=== PATIENT | male | born 1935 | race Caucasian/White ===

== ENCOUNTER → 2016-12-18 | Outpatient (CLI) | payer BC ==
[~2016-12-18] MED LIST: ALBU1AER9 INH; ASPCH81; CALCTAB5 PO; CHOL100010 PO; FLNIN NAE; FLVHFA110 INH; LISI40TA PO; METR1GEL3 TOP; MUCINEX DM PO; OMEG10007 PO; PRESERVISION PO; PRLSR20 PO; SIMV20TA2 PO; [UNRECOGNIZED DRUG - OTHER] PO; leutin PO
--- NOTE | 2016-12-19 15:50 | PULMONARY FUNCTION TEST ---
Spirometry is consistent with a mild obstructive pattern. Repeat study done following bronchodilator showed a 13% improvement in FEV1. Advised clinical correlation. Lung volumes showed an increase in residual volume suggesting air trapping. Diffusion capacity was normal.
== END | disposition home or self-care (01) ==
LOC: C.RC 13:02
PROVIDERS: ATTEND Internal Medicine
DX: R05 Cough (principal); R06.2 Wheezing

== ENCOUNTER → 2017-07-16 | Outpatient (CLI) | payer BC ==
--- NOTE | 2017-07-16 15:28 | DIAGNOSTIC IMAGING REPORT ---
R HIP UNILATERAL 2 VIEWS CLINICAL HISTORY: Right hip pain. No known trauma. COMPARISON: None FINDINGS: Brachytherapy seeds within the prostate are incidentally noted. Alignment of the right hip is anatomic. There is no fracture or suspicious osseous lesion. There is marked right hip joint space narrowing with osteophytosis. IMPRESSION: 1. No acute fracture. 2. Severe osteoarthritis of the right hip. Electronically signed by: Nikko Armando M.D. 07/16/2017 3:27 PM Dictated Date/Time: 07/16/2017 3:26 PM
== END | disposition home or self-care (01) ==
LOC: C.RADBC 14:36
PROVIDERS: ATTEND Internal Medicine
DX: M16.11 Unilateral primary osteoarthritis, right hip (principal)

== ENCOUNTER → 2017-07-27 | Outpatient (CLI) | payer BC | END | disposition home or self-care (01) | LOC: C.LABSPEC 16:20 | PROVIDERS: ATTEND Nurse Practitioner Family | DX: N39.41 Urge incontinence (principal) ==

== ENCOUNTER → 2017-08-24 | Outpatient (CLI) | payer BC ==
[2017-08-24 08:13] LABS: HEMATOCRIT 45.3 % (42-52); MEAN CELL VOLUME 88.8 fL (80-100); MEAN CORPUSCULAR HEMOGLOBIN 29.4 pg (25-34); MEAN CORPUSCULAR HGB CONC 33.1 g/dl (32-36); PLATELET COUNT 240 K/uL (130-400); WHITE BLOOD COUNT 7.17 K/uL (4.8-10.8)
[2017-08-24 08:17] LABS: BLOOD UREA NITROGEN 16 mg/dl (7-18); BUN/CREATININE RATIO 20.3 (10-20); CALCIUM 8.9 mg/dl (8.5-10.1); CARBON DIOXIDE 29 mmol/L (21-32); CHLORIDE 104 mmol/L (98-107); CREATININE 0.79 mg/dl (0.60-1.40); GLUCOSE 95 mg/dl (70-99); POTASSIUM 4.4 mmol/L (3.5-5.1); SODIUM 142 mmol/L (136-145)
[2017-08-24 08:27] LABS: CHOLESTEROL 130 mg/dl (0-200); CHOLESTEROL/HDL RATIO 2.3; HDL CHOLESTEROL 57 mg/dl; LDL CHOLESTEROL CALCULATED 42 mg/dl; TRIGLYCERIDES 156 mg/dl (0-150); VERY LOW DENSITY LIPOPROT CALC 31 mg/dl
== END | disposition home or self-care (01) ==
LOC: C.LABFOXMH 07:54
PROVIDERS: ATTEND Internal Medicine Hospice and Palliative Medicine
DX: R53.83 Other fatigue (principal)

== ENCOUNTER 2021-04-16 05:08 | Observation (INO) ==
--- NOTE | 2021-03-22 10:50 | PAT Medication Instructions ---
Medication Instructions Date of Service March 22, 2021 Home Medications Medication Instructions Recorded onabotulinumtoxinA 100 unit 100 unit INTRAVESICAL ONCE #1 ea 06/25/20 solution for injection albuterol sulfate 90 mcg/actuation breath activated powder inhaler 2 puffs INH Q6H PRN alendronate 70 mg-cholecalciferol (vitamin D3) 2,800 unit tablet 1 tab PO WK aspirin 81 mg tablet,delayed release 81 mg PO PM cholecalciferol (vitamin D3) 50 mcg (2,000 unit) tablet 2,000 units PO QAM guaifenesin 1,200 mg tablet, extended release 12 hr 1,200 mg PO BID PRN lisinopril 40 mg tablet 40 mg PO QAM metronidazole 0.75 % topical gel 1 appln TOP DAILY PRN omeprazole 20 mg capsule,delayed release 20 mg PO DAILY PRN vitamins A,C,V-mdec-iqlelq 14,320 unit-226 mg-200 unit capsule 1 cap PO BID onabotulinumtoxinA 100 unit solution for injection 100 unit INTRAVESICAL ONCE acetaminophen [Tylenol] 325 mg PO BID coenzyme Q10 [Co Q-10] 100 mg PO QAM famotidine [Pepcid] 20 mg PO BID lutein 20 mg PO QAM melatonin 3 mg PO HS prednisone 7 mg PO QAM rosuvastatin 20 mg PO PM solifenacin [Vesicare] 5 mg PO QAM Continue as directed alendronate 70 mg-cholecalciferol (vitamin D3) 2,800 unit tablet 1 tab PO WK (continue as normal unless told otherwise by prescriber) STOP taking 2 weeks before surgery (or as soon as possible if surgery is within 2 weeks) vitamins A,C,M-owmq-feqykz 14,320 unit-226 mg-200 unit capsule 1 cap PO BID coenzyme Q10 [Co Q-10] 100 mg PO QAM lutein 20 mg PO QAM STOP taking 24 hours before surgery metronidazole 0.75 % topical gel 1 appln TOP DAILY PRN DO NOT take the morning of surgery cholecalciferol (vitamin D3) 50 mcg (2,000 unit) tablet 2,000 units PO QAM guaifenesin 1,200 mg tablet, extended release 12 hr 1,200 mg PO BID PRN lisinopril 40 mg tablet 40 mg PO QAM Take morning of surgery With a small sip of water, OTHERWISE NOTHING TO EAT OR DRINK AFTER MIDNIGHT: albuterol sulfate 90 mcg/actuation breath activated powder inhaler 2 puffs INH Q6H PRN (use if needed; please bring rescue inhaler with you to hospital day of surgery if possible) omeprazole 20 mg capsule,delayed release 20 mg PO DAILY PRN (if needed) acetaminophen [Tylenol] 325 mg PO BID (okay to take up to 4 hours prior to surgery if needed) famotidine [Pepcid] 20 mg PO BID prednisone 7 mg PO QAM solifenacin [Vesicare] 5 mg PO QAM Take evening before surgery albuterol sulfate 90 mcg/actuation breath activated powder inhaler 2 puffs INH Q6H PRN (if needed) aspirin 81 mg tablet,delayed release 81 mg PO PM (continue as normal unless told otherwise by surgeon) guaifenesin 1,200 mg tablet, extended release 12 hr 1,200 mg PO BID PRN (if needed) omeprazole 20 mg capsule,delayed release 20 mg PO DAILY PRN (if needed) acetaminophen [Tylenol] 325 mg PO BID famotidine [Pepcid] 20 mg PO BID melatonin 3 mg PO HS rosuvastatin 20 mg PO PM Other Notes If you have any questions please call us at [phone] or [phone] or [phone] or [phone]
--- NOTE | 2021-03-27 08:18 | Anesthesiology Consultation ---
Date of Service March 27, 2021 Assessment & Plan (1) Encounter for pre-operative examination: COVID screening: Per assessment on 03/27: Travel screen negative, no known COVID- 19 positive contacts or current COVID-19 related symptoms. Patient resides at [facility] (independent living). No [facility] cases currently per patient. Patient vaccinated. Surgeon arranging preop COVID testing. Awaiting results. Chart Review Chart Review: Acceptable Risk for Surgery and Patient seen in Pre Admission Testing Teaching & Discussion Pre-Anesthesia Teaching/Discussion Notes: Instructed NPO after midnight before surgery,except medications with 15 cc of water. Medication instructions provided according to the PAT guidelines. History Surgery Operation Date: 04/16/21 08:50 Proposed Procedures p Right Total Hip Arthroplasty - Alejandro Carrera MD Height/Weight Height: 5 ft 9 in Weight: 80 kg Allergies Allergy/AdvReac Type Severity Reaction Status Date / Time tamsulosin Allergy Unknown Unknown Verified 03/20/21 09:46 Medications Home Medications Medication Instructions Recorded Confirmed Last Taken albuterol sulfate 90 mcg/actuation 2 puffs INH Q6H PRN 11/17/19 03/20/21 Unknown breath activated powder inhaler alendronate 70 mg-cholecalciferol 1 tab PO WK 11/17/19 03/20/21 Unknown (vitamin D3) 2,800 unit tablet aspirin 81 mg tablet,delayed 81 mg PO PM 11/17/19 03/20/21 Unknown release cholecalciferol (vitamin D3) 50 2,000 units PO QAM 11/17/19 03/20/21 Unknown mcg (2,000 unit) tablet guaifenesin 1,200 mg tablet, 1,200 mg PO BID PRN 11/17/19 03/20/21 Unknown extended release 12 hr lisinopril 40 mg tablet 40 mg PO QAM 11/17/19 03/20/21 Unknown metronidazole 0.75 % topical gel 1 appln TOP DAILY PRN 11/17/19 03/20/21 Unknown omeprazole 20 mg capsule,delayed 20 mg PO DAILY PRN 11/17/19 03/20/21 Unknown release vitamins A,C,B-mroj-rpuxpo 14,320 1 cap PO BID 11/17/19 03/20/21 Unknown unit-226 mg-200 unit capsule onabotulinumtoxinA 100 unit 100 unit INTRAVESICAL ONCE #1 ea 06/25/20 03/20/21 Unknown solution for injection acetaminophen [Tylenol] 325 mg PO BID 03/20/21 03/20/21 Unknown coenzyme Q10 [Co Q-10] 100 mg PO QAM 03/20/21 03/20/21 Unknown famotidine [Pepcid] 20 mg PO BID 03/20/21 03/20/21 Unknown lutein 20 mg PO QAM 03/20/21 03/20/21 Unknown melatonin 3 mg PO HS 03/20/21 03/20/21 Unknown prednisone 7 mg PO QAM 03/20/21 03/20/21 Unknown rosuvastatin 20 mg PO PM 03/20/21 03/20/21 Unknown solifenacin [Vesicare] 5 mg PO QAM 03/20/21 03/20/21 Unknown Past Medical History Medical History (Updated 03/27/21 @ 09:26 by Kristina Perry) Asthma stable GERD (gastroesophageal reflux disease) controlled Hyperlipidemia Hypertension Osteoarthritis Osteoporosis Polymyalgia rheumatica chronically on prednisone 7mg daily Prostate cancer 8 yrs ago> radioactive seeds Urinary incontinence Exercise / Class Metabolic Activity II 4-5 Yardwork/Stairs/Walk up hill (one FS (no CP, no SOB)) Past Surgical History Surgical History History of cardiac cath 8 yrs ago > Sue> no stents History of cataract surgery bilat History of colonoscopy History of root canal procedure History of tonsillectomy History of tooth extraction History of total knee replacement left Past Anesthesia History No Hx of Anesthesia Complications and No Family Hx of Anesthesia Complications History of PONV No Hx of PONV and No Hx of Motion Sickness Social History Smoking Status: Never smoker Do You Dip or Chew Tobacco: No Hx Alcohol Use: Yes Alcohol type: wine alcohol intake frequency: holidays/special occasions only Hx Substance Use: No substance use type: does not use Review of Systems Patient denies chest pain, shortness of breath, dyspnea on exertion, fever, chills, cough, wheezing, palpitations. Physical Exam Vital Signs VITALS BP 127/73 P 61 TEMP SP02 93%RA RESP 16 PHYSICAL Mildly decreased cervical extension range of motion. Full TMJ range of motion. TMD 4 finger breaths Mallampati Score 3 Dentition: intact, + implant (upper left side) Lungs: clear throughout to auscultation Cardiac: regular rate and rhythm, no murmurs noted Spine: normal Carotid arteries: negative bruit Extremities: no edema Lab Results Anesthesia Preop Results Results Anesthesia Widget: WBC 9.03 K/uL (4.8-10.8) 03/27/21 Hgb 13.6 g/dL (14.0-18.0) L 03/27/21 Hct 42.3 % (42-52) 03/27/21 Plt 307 K/uL (130-400) 03/27/21 Na 142 mmol/L (136-145) 03/27/21 K 4.0 mmol/L (3.5-5.1) 03/27/21 Cl 109 mmol/L (98-107) H 03/27/21 CO2 26 mmol/L (21-32) 03/27/21 BUN 18 mg/dl (7-18) 03/27/21 Creat 0.67 mg/dl (0.6-1.4) 03/27/21 Glucose Level 89 mg/dl (70-99) 03/27/21 PT 10.6 Seconds (9.0-12.0) 03/27/21 PTT 26.2 Seconds (21.0-31.0) 03/27/21 INR 1.0 (0.9-1.1) 03/27/21 Blood Type O Positive 03/27/21 Antibody Screen NEGATIVE 03/27/21 Testing Electrocardiogram Date: 03/27/21 Sinus bradycardia with first-degree AV block at 57 bpm. Minimal voltage criteria for LVH, may be normal variant. No significant change compared to 09/05/2009 per disk grinder review. Chest X-Ray Date: 03/27/21 Mild atelectasis at the left base. No significant pulmonary vascular congestion. No pneumothorax. No pleural effusion.
--- NOTE | 2021-04-07 14:58 | History and Physical Report ---
CHIEF COMPLAINT: Right hip pain. HISTORY OF PRESENT ILLNESS: The patient is an 85-year-old gentleman well known to me from previous l eft knee replacement done 14 years ago. He is a very avid ball worker. Over the past year, he h as developed increased pain and discomfort in his right hip. He has been less active with the [facility] and noticed increasing hip pain and discomfort. He has not been able to do any ballroom dancing. He actually has started using a cane over the past couple months due to the pain. His groin pain an d thigh pain radiates down to his knee, but no further. He has difficulty putting his shoes and sock s on. He does like to have his hip fixed. He has taken oral medicines without much relief. PAST MEDICAL HISTORY: Significant for. 1. Asthma. 2. Low back pain/sciatica. 3. Elevated cholesterol. 4. Gastroesophageal reflux disease. 5. Hypertension. PAST SURGICAL HISTORY: Include left total knee replacement done on 02/12/2007. ALLERGIES: DUST. CURRENT MEDICATIONS: 1. Albuterol. 2. Alendronate. 3. Aspirin 4. Vitamin D3. 5. Fluticasone nasal spray. 6. Guaifenesin. 7. Lisinopril 40 mg. 8. Metronidazole topical gel. 9. [place] 3 fatty acids. 10. Omeprazole 20 mg daily. 11. Simvastatin/Zocor 10 mg daily. 12. VESIcare 5 mg a day. SOCIAL HISTORY: The patient is an 85-year-old male. He lives at [facility] with his . 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 He is very avid ball worker. He does not smoke . FAMILY HISTORY: Noncontributory. REVIEW OF SYSTEMS: Negative for diabetes, neurologic problems, vascular problems or bleeding disorde rs. No chest pain or shortness of breath. No history of DVT or PE. No known bleeding problems. PHYSICAL EXAMINATION: GENERAL: He is a pleasant 85-year-old male. He looks to be in excellent health. HEENT: Benign. NECK: Supple. No lymphadenopathy. LUNGS: Clear to auscultation. HEART: Regular rate and rhythm. ABDOMEN: Soft, nontender, nondistended. EXTREMITIES: Grossly neurovascularly intact except as follows. Examination of the right hip revealed patient ambulates with a bit of a limp. He comes in using a ca ne. Leg lengths appear pretty clinically equal. He does have some stiffness and pain with any type of hip motion. He has got an external rotation contracture about 5 degrees. Negative straight leg r aise. He is neurologically intact. X-rays of the right hip are reviewed. Shows advanced right hip DJD. He has got complete loss of the joint space. He has fairly concentric protrusio appearance to his hip. Concentric joint space loss . ASSESSMENT: An 85-year-old male, very active with several medical comorbidities including gastroesop hageal reflux disease, hypertension, elevated cholesterol, asthma and sciatica with advanced right hi p degenerative joint disease. It has progressed over the past year to the point where it is really l imiting his activities. He would like to have his right hip fixed. PLAN: We will take him to the operating room and do a right total hip replacement. The risks and lilliam efits of this procedure were explained to the patient including but not limited to DVT, PE, , in fection, neurological injury, vascular injury, bleeding problems, pain, limited range of motion, stif fness, failure to relieve the symptoms, incomplete relief of symptoms, need for further surgery, futu re, fracture, leg length inequality, nerve palsy, etc. The patient understands and desires to procee d. Informed consent was obtained. He does assist his in care and is hoping to get back to normal activities as quick as possible. He will likely stay in the hospital overnight. He will likely go to the [facility] postoperatively in the rehab area. Hold his lisinopril the morning of surgery. Job ID: [id number]
[2021-04-16] MEDS ORDERED: LR 500ML BOLUS, THEN 15ML/HR IV SCH (06:00)
[2021-04-16] MEDS ORDERED: ceFAZolin 2000MG 2,000 MG/15 ML SYR IV SCH (06:00)
[2021-04-16] MEDS ORDERED: Scopolamine 1 MG TDSY TD SCH (06:00)
[2021-04-16] MEDS ORDERED: FAMOTIDINE 20 MG TAB PO SCH (06:00)
[2021-04-16] MEDS ORDERED: METOCLOPRAMIDE HCL 10 MG TABLET PO SCH (06:00)
[2021-04-16] MEDS ORDERED: ACETAMINOPHEN 500 MG TAB PO SCH (06:00)
[2021-04-16] MEDS ORDERED: LR 60ML/HR IV SCH (06:00)
[2021-04-16] MEDS ORDERED: GABAPENTIN 300 MG CAP PO SCH (06:00)
[2021-04-16] MEDS ORDERED: TRANEXAMIC ACID 1,000 MG **IV Pre-op IV SCH (06:00)
[2021-04-16] MEDS ORDERED: BUPIVACAINE LIPOSOME/PF 266 MG, BUPIVACAINE/EPINEPHRINE 50 ML, SODIUM CHLORIDE 0.9% 30 ... INFIL SCH (06:00)
[2021-04-16] MEDS ORDERED: BUPIVACAINE 0.5 % 5 MG/1 ML PF 10ML VIAL ONE (06:26)
[2021-04-16] MEDS ORDERED: BUPIVACAINE 0.25% 30 ML VIAL ONE (06:26)
[2021-04-16] MEDS ORDERED: fentaNYL citrate 100 MCG/2 ML VIAL IV PRN (06:27)
[2021-04-16] MEDS ORDERED: ONDANSETRON INJ 2 MG/ML 2 ML VIAL IV PRN ×3 (06:27→10:52)
[2021-04-16] MEDS ORDERED: ePHEDrine sulfate 50 MG/ML AMP IV PRN ×2 (06:27→10:52)
[2021-04-16] MEDS ORDERED: ATROPINE SULFATE 0.1 MG/ML 10ML SYR IV PRN (06:27)
[2021-04-16] MEDS ORDERED: MIDAZOLAM HCL 1 MG/ML 2ML VIAL ONE (06:45)
[2021-04-16] MEDS ORDERED: MoRPHine SULFATE PF 1 MG/ML 10 ML AMP/VIAL ONE (06:46)
[2021-04-16] MEDS ORDERED: BUPIVACAINE/EPINEPHRINE 0.5% MPF 1:200,000 30 ML VIAL ONE (06:50)
--- NOTE | 2021-04-16 06:53 | History & Physical Bridge Note ---
Date of Service April 16, 2021 History & Physical Bridge Note I have examined the patient, reviewed the History & Physical and in the interval since the performance of the History & Physical I have noted the following changes of clinical significance: no changes noted
[2021-04-16] MEDS ORDERED: ePHEDrine sulfate 50 MG/ML SYR ONE (07:30)
[2021-04-16] MEDS ORDERED: PHENYLEPHRINE 100MCG/ML 5ML SYR ONE (07:30)
[2021-04-16] MEDS ORDERED: HYDROCORTISONE SOD SUCCINATE 100 MG/2 ML VIAL ONE (07:30)
[2021-04-16] MEDS ORDERED: ONDANSETRON INJ 2 MG/ML 2 ML VIAL ONE (07:30)
[2021-04-16] MEDS ORDERED: PROPOFOL IV EMULSION 10 MG/ML 20 ML VIAL IV ONE (07:30)
--- NOTE | 2021-04-16 08:38 | Operative Report ---
Post Operative Report Pre & Post Diagnosis Operation Date: 04/16/21 07:00 Pre-Op Diagnosis: Right Hip Advanced Degenerative Joint Disease Post-Op Diagnosis: Right Hip Advanced Degenerative Joint Disease I identified the patient and participated in the time-out.: Yes Procedure Operation Date: 04/16/21 07:00 Actual Procedures p Right Total Hip Arthroplasty--Uncemented(Right) - Alejandro Carrera MD Surgeon Alejandro Carrera MD [facility] Estimated Blood Loss 200 Findings Consistent with Post-Op Diagnosis Operative findings revealed advanced right hip DJD. Patient had extensive grade 4 pqyx-fi-sbqt disease of the femoral head and acetabulum. He had count of a protrusio appearance to the acetabular with pincer type impingement. Small anterior and posterior acetabular osteophytes. Moderate-sized joint effusion. Fluids 1000 cc Specimens Right femoral head sent for pathology. Drains None. Anesthesia Type Spinal MAC Complications none Disposition Accompanied Patient To Recovery: Yes Disposition: Recovery Room Indications Patient is an 85-year-old very active gentleman whose had a several year history of increasing right hip pain discomfort is gotten singly worse over the past year. He has resorted to using a cane to get around. It truly hampered his lifestyle and limit his activities. He elected proceed with surgical treatment. Description of Procedure Operative implants consist of: 1. Biomet G7 size 56 mm acetabular shell. 2. 6.5 cancellous acetabular screws 135 mm length 125 mm length. 3. Osseo hole rn postpartum. 4. Highly cross-linked polyethylene liner with a 56 mm outer diameter, 36 mm inner diameter. 5. [place] Corail size 11 KLA short neck femoral stem. 6. +5/36 mm ceramic articular ball. The patient was taken to the operating, identified, and placed on the operating table supine position but all contact areas were properly padded. IV antibiotics tried by anesthesia team. Spinal anesthetic had been implemented holding area. Carney catheter was placed in sterile fashion. The patient then placed in the left lateral decubitus position. An axillary roll was placed. A Stulberg hip positioner was used for positioning. The right hip and leg were then prepped and draped in usual sterile fashion. A posterior lateral approach to the right hip was then performed to a curvilinear incision centered over the greater trochanter. Sharp dissection Was carried out through the subcutaneous tissues down to the level of the IT band gluteal fascia. The IT band gluteal fascia then incised longitudinally in line with skin incision. The underlying greater bursa was excised. The piriformis and external rotators were tagged and taken off the posterior aspect hip joint capsule. Great care was taken throughout the procedure protect the sciatic nerve at all times. The hip was internally rotated and dislocated after posterior capsulotomy was performed. We did leave a large flap for later repair. Femoral neck osteotomy cut was then made with Final Cut about 11 mm above the lesser trochanter. Femoral head was removed and sent for pathology. The femur was retracted anteriorly. Attention drawn the acetabulum. The acetabular labrum was excised. The pulmonary fat was excised. Sequential reaming the acetabular was then performed below the size 45 and progressing up to a 55. We did not do much reaming centrally as he had fairly a protrusio appearance to his acetabulum. I did reamed with a 56 reamer. The a 56 mm Biomet G7 acetabular shell was then placed in about 20 degrees of anteversion and 40 degrees lateral opening. Small small anterior and posterior osteophytes were removed. The acetabular was fixed with two 6.5 cancellous acetabular screws. Trial liner was placed. Attention drawn the femur. The proximal femur was entered with a cookie-cutter followed by canal finder. I then broached begin the size 8 and progressing up to 11. Got excellent fit at 11. I then trialed the hip. With a standard neck the soft tissues were just too tight. Therefore we elected to use the short neck. Use a +5 articular ball and the hip was fully stable in full extension and external rotation flexion to 9 degrees internal rotation over [address] these implants. Leg lengths seem appropriate. All trial implants were removed. An apex hole rn postpartum was placed. Highly cross-linked polyethylene liner was placed. A DePuy size 11 KLA femoral stem was impacted in position. This was a short neck stem. A +5/36 mm ceramic articular ball was placed and hip was once again located. Attention drawn toward closing. The wound was irrigated scope soft pulsatile lavage solution. I injected locally with 60 cc of half percent Marcaine with epinephrine. The posterior capsule and external rotators were then repaired through drill holes in the posterior trochanter with #2 Tycron suture. The IT band gluteal fascia then closed with #1 PDS suture in a running fashion for subcutaneous tissue then closed with 2 layers with a deep layer #1 Vicryl suture and subcutaneous tissues with 2-0 Dexon suture in a buried interrupted fashion. Skin was closed skin joel. Leg was then cleaned and dried a sterile dressing both Xeroform, 4 x 4's, sterile ABD pad, foam tape were applied. Patient then transferred to the recovery room in stable condition. Patient tolerated procedure well and there were no complications. Aiden Arenas, my physician orthodontic assistant, was present for the entire procedure. His assistance was essential and required for appropriate patient positioning, prepping and draping, surgical exposure, performing the technical details of the operation, placement the implants, closure of the wound, and placement of the sterile bandage. I attest to the content of the Intraoperative Record and any orders documented therein. Any exceptions are noted below.
--- NOTE | 2021-04-16 08:58 | XRay Report ---
AP PELVIS, CROSSTABLE LATERAL RIGHT HIP History: Right total hip arthroplasty. Degenerative arthritis. Postop. FINDINGS: The patient is status post a right total hip arthroplasty. The hardware is intact. No fract ure or dislocation. Skin joel are in place. IMPRESSION: Right total hip arthroplasty. No evidence for hardware complication ACT 112: Negative or not required by law. Electronically signed by: Aleksandr Qureshi M.D. 04/16/2021 8:56 AM
[2021-04-16] MEDS ORDERED: bisacodyL 10 MG SUPP PR PRN (09:54)
[2021-04-16] MEDS ORDERED: METOCLOPRAMIDE HCL INJ 5 MG/ML 2 ML VIAL IV PRN (09:54)
[2021-04-16] MEDS ORDERED: NON-FORMULARY MEDICATION (Lutein 20 mg Capsule) PO SCH (09:54)
[2021-04-16] MEDS ORDERED: metroNIDAZOLE 0.75% TOPICAL GEL 45 GM TUBE TOP PRN (09:54)
[2021-04-16] MEDS ORDERED: MAGNESIUM HYDROXIDE SUSP 30 ML UDC PO PRN (09:54)
[2021-04-16] MEDS ORDERED: guaiFENesin 600 MG TABCR PO PRN (09:54)
[2021-04-16] MEDS ORDERED: NALOXONE HCL 0.4 MG/1 ML VIAL/CARP IV PRN ×2 (09:54→10:52)
[2021-04-16] MEDS ORDERED: HYDROmorphone INJ 0.5 MG/0.5 ML SYR IV PRN (09:54)
[2021-04-16] MEDS ORDERED: NON-FORMULARY MEDICATION (Coenzyme Q10 [Co Q-10] 100 mg Capsule) PO SCH (09:54)
[2021-04-16] MEDS ORDERED: traMADol HCL 50 MG TABLET PO PRN (09:54)
[2021-04-16] MEDS ORDERED: ALUMINUM/MAGNESIUM SUSP 30 ML UDC PO PRN (09:54)
[2021-04-16] MEDS ORDERED: TAMSULOSIN HCL 0.4 MG CAP PO PRN (09:54)
[2021-04-16] MEDS ORDERED: ALBUTEROL HFA 8 GM INHALER INH PRN (10:19)
[2021-04-16] MEDS ORDERED: PANTOprazole 40 MG TAB PO PRN (10:21)
[2021-04-16] MEDS ORDERED: diphenhydrAMINE 50 MG/ML VIAL IV PRN (10:52)
[2021-04-16] MEDS ORDERED: LACTATED RINGER'S 500 ML IV PRN (10:52)
[2021-04-16] MEDS ORDERED: NALOXONE HCL 0.08 MG in SYRINGE 1.8 ML IV PRN (10:52)
[2021-04-16] MEDS ORDERED: NALOXONE HCL 1 MG in SODIUM CHLORIDE 0.9% 1000ML 1,000 ML IV PRN (10:52)
[2021-04-16] MEDS ORDERED: MoRPHine SULFATE PF 1 MG/ML 10 ML AMP/VIAL INT SPINAL ONE (10:52)
[2021-04-16] MEDS ORDERED: MoRPHine SULFATE 2 MG/ML CARP IV PRN (10:52)
[2021-04-16] MEDS ORDERED: DC INTRASPINAL MORPHINE SCH (11:00)
[2021-04-16] MEDS ORDERED: NO NARCOTICS OR SEDATIVES SCH (11:00)
[2021-04-16] MEDS ORDERED: SODIUM CHLORIDE 0.9% 1000ML 1,000 ML IV SCH (11:00)
[2021-04-16] MEDS: SODIUM CHLORIDE 0.9% 1000ML 1,000 ML IV SCH ×2 (12:23→20:44)
[2021-04-16] MEDS: ASPIRIN 81 MG ECTAB PO SCH ×2 (12:33→20:37)
[2021-04-16] MEDS: CHOLECALCIFEROL 1,000 UNITS 25 MCG TAB PO SCH (12:34)
[2021-04-16] MEDS: lisinopril 40 MG TAB PO SCH (12:34)
[2021-04-16] MEDS: KETOROLAC TROMETHAMINE 15 MG/ML VIAL IV SCH ×3 (12:34→22:51)
[2021-04-16] MEDS: DOCUSATE SODIUM 100 MG CAP PO SCH ×2 (12:34→20:38)
[2021-04-16] MEDS: MULTIVITAMIN TAB PO SCH (12:34)
[2021-04-16] MEDS: predniSONE 1 MG TAB PO SCH (12:34)
[2021-04-16] MEDS: FAMOTIDINE 20 MG TAB PO SCH ×2 (12:34→20:39)
[2021-04-16] MEDS: ceFAZolin 2000MG 2,000 MG/15 ML SYR IV SCH ×2 (14:05→22:51)
[2021-04-16] MEDS: ACETAMINOPHEN 500 MG TAB PO SCH ×2 (14:05→22:50)
--- NOTE | 2021-04-16 14:13 | Anesthesiology Progress Note ---
Date of Service April 16, 2021 Anesthesia Post Procedure Vital Signs Vital Signs: Temp Pulse Pulse Resp BP BP Pulse Ox 04/16/21 12:50 36.4 C L 73 16 125/76 95 04/16/21 10:40 61 16 120/72 96 04/16/21 10:10 65 16 121/69 93 04/16/21 09:40 36.4 C L 68 16 119/66 97 04/16/21 09:30 71 16 124/64 93 04/16/21 09:20 75 16 117/68 93 04/16/21 09:10 36 C L 76 16 127/62 92 04/16/21 09:00 76 16 127/65 91 04/16/21 08:50 80 16 121/70 95 04/16/21 08:40 82 16 131/62 99 04/16/21 08:30 74 16 129/78 98 04/16/21 08:23 36.4 C L 80 16 145/70 H 99 04/16/21 06:06 36.7 C 65 20 162/78 H 95 Transfer of Care Handoff Completed per policy Notes Mental Status: alert / awake / arousable and participated in evaluation Patient Amnestic to Procedure: Yes Nausea / Vomiting: adequately controlled Pain: adequately controlled Airway Patency, RR, SpO2: stable & adequate BP & HR: stable & adequate Hydration State: stable & adequate Neuraxial Anesthesia: was administered and sensory block is resolving Anesthetic Complications: no major complications apparent and Pt Satisfied with anesthetic care
[2021-04-16] MEDS ORDERED: TRANEXAMIC ACID / 0.7% NACL 1,000 MG/100 ML BAG IV SCH (14:27)
[2021-04-16] MEDS: ASCORBIC ACID 500 MG TAB PO SCH (17:12)
[2021-04-16] MEDS: Scopolamine CHECK PATCH PLACEMENT SCH ×2 (17:12→23:54)
[2021-04-16] MEDS ORDERED: MELATONIN 3 MG TAB PO SCH (21:00)
[2021-04-16] MEDS ORDERED: SENNA 8.6 MG TAB PO SCH (21:00)
[2021-04-16] MEDS ORDERED: ROSUVASTATIN CALCIUM 20 MG TAB PO SCH (21:00)
[2021-04-17] MEDS: ACETAMINOPHEN 500 MG TAB PO SCH ×2 (05:41→13:58)
[2021-04-17] MEDS: KETOROLAC TROMETHAMINE 15 MG/ML VIAL IV SCH ×2 (05:42→10:25)
[2021-04-17] MEDS: SODIUM CHLORIDE 0.9% 1000ML 1,000 ML IV SCH (05:43)
[2021-04-17 07:45] LABS: Basophils # (auto) 0.01 K/uL (0-0.2); Basophils % (auto) 0.1 %; Eosinophils % (auto) 0.9 %; Hematocrit (blood only) 33.7 % (42-52); Hemoglobin 10.9 g/dL (14.0-18.0); Immature Granulocytes # (auto) 0.04 K/uL (0.00-0.02); Immature Granulocytes % (auto) 0.4 %; Lymphocytes # (auto) 2.19 K/uL (1.2-3.4); Lymphocytes % (auto) 19.7 %; Mean Corpuscular Hemoglobin 29.9 pg (25-34); Mean Corpuscular Hgb Conc 32.3 g/dL (32-36); Mean Corpuscular Volume 92.6 fL (80-100); Mean Platelet Volume 9.4 fL (7.4-10.4); Monocytes % (auto) 12.6 %; Neutrophils # (auto) 7.38 K/uL (1.4-6.5); Neutrophils % (auto) 66.3 %; Platelet Count 234 K/uL (130-400); RDW Coefficient of Variation 15.4 % (11.5-14.5); RDW Standard Deviation 52.9 fL (36.4-46.3); Red Blood Count 3.64 M/uL (4.7-6.1); White Blood Count 11.12 K/uL (4.8-10.8)
[2021-04-17] MEDS ORDERED: dexAMETHasone 10 MG in SYRINGE 0 ML IV SCH (08:00)
[2021-04-17] MEDS: ASCORBIC ACID 500 MG TAB PO SCH (08:15)
[2021-04-17] MEDS: Scopolamine CHECK PATCH PLACEMENT SCH (08:16)
[2021-04-17] MEDS: ASPIRIN 81 MG ECTAB PO SCH (08:19)
[2021-04-17] MEDS: CHOLECALCIFEROL 1,000 UNITS 25 MCG TAB PO SCH (08:19)
[2021-04-17] MEDS: DOCUSATE SODIUM 100 MG CAP PO SCH (08:20)
[2021-04-17] MEDS: FAMOTIDINE 20 MG TAB PO SCH (08:21)
[2021-04-17 08:22] LABS: BUN Creatinine Ratio 26.3 (10-20); Calcium 7.7 mg/dl (8.5-10.1); Creatinine Clr Calc Pharmacy 75.7 ml/min; Est GFR (African American) 100.3 ml/min; Est GFR (Non-African American) 86.6 ml/min; Potassium 3.9 mmol/L (3.5-5.1)
[2021-04-17] MEDS: MULTIVITAMIN TAB PO SCH (08:22)
[2021-04-17] MEDS: predniSONE 1 MG TAB PO SCH (08:22)
[2021-04-17] MEDS: lisinopril 40 MG TAB PO SCH (10:26)
--- NOTE | 2021-04-17 14:49 | Progress Notes ---
DATE OF SERVICE: 04/17/2021. SUBJECTIVE: An 85-year-old gentleman postop day #1 from a right hip replacement. He is doing well. Therapy went well. Pain is controlled. No chest pain or shortness of breath. Not feeling dizzy or lightheaded. He really wants to get home to be with his . OBJECTIVE: VITAL SIGNS: Temperature 36.3. Vital signs stable. GENERAL: Physical exam shows a pleasant elderly male. He is sitting up in his bedside chair, looks comfortable. LUNGS: Clear to auscultation. CARDIOVASCULAR: Regular rate and rhythm. ABDOMEN: Soft, nontender, nondistended. EXTREMITIES: Grossly neurovascularly intact except as follows. Examination of the right hip reveals the dressing to be clean, dry and intact. Leg lengths are equal . Thigh is soft and supple. He can dorsiflex and plantarflex his foot appropriately. LABORATORY DATA: Hemoglobin 10.9. Hematocrit 33.7. White cell count 11.12. Electrolytes are stabl e. ASSESSMENT: An 85-year-old gentleman postop day 1 from right hip replacement, doing well. Pain is c ontrolled. Hip is located. He is neurologically intact. PLAN: 1. DVT prophylaxis include thigh-high TEDs, SCDs and aspirin twice a day. 2. PT, OT weightbear as tolerated. Right total hip protocol. 3. Pain control, doing well with current pain regimen. 4. Disposition: Plan to discharge to [facility] later today if able to get transporta tion and accepted. Job ID: [id number]
--- NOTE | 2021-04-22 07:38 | Discharge Summary ---
Date of Service April 22, 2021 Discharge Data Procedures Performed Operation Date: 04/16/21 07:00 Actual Procedures p Right Total Hip Arthroplasty--Uncemented(Right) - Alejandro Carrera MD Hospital Course (1) Status post total hip replacement, right: This patient is a 85 year old admitted on 04/16/21 and underwent total hip arthroplasty. He tolerated the procedure well and there were no complications. Transferred to the PACU post op and later to the orthopedic floor for further care. He was given ancef for antibiotic prophylaxis. He was also given YADIRA stockings, SCDs, and aspirin for DVT prophylaxis. Hemoglobin, hematocrit, and vital signs were monitored during his hospital stay and remained stable. Did not require any blood transfusions. There were no complications during his hospital stay. By post op day #1 the patient was tolerating a regular diet, pain was reasonably controlled with oral pain medicine, and he was participating in physical therapy. On post op day #1 the patient was discharged home and set up with home health care. He was given printed discharge instructions including prescriptions for extra strength tylenol, aspirin, and tramadol. Continue physical therapy, weight bearing as tolerated. Continue YADIRA stockings. Follow up approximately 2 weeks post op or sooner if there are problems or concerns. Coding Level of Care Code None Diagnoses Status post total hip replacement, right Z96.641
== END 2021-04-17 15:47 | disposition home health service (06) ==
LOC: 3E 05:08 → ASU 05:08

== ENCOUNTER 2023-02-15 18:35 | Inpatient (IN) ==
[2023-02-15] MEDS ORDERED: ALBUTEROL HFA 8 GM INHALER INH ONE (18:46)
[2023-02-15] MEDS ORDERED: dexAMETHasone**PF** 10 MG/ML VIAL IV ONE (18:46)
--- NOTE | 2023-02-15 18:53 | Emergency Department Note ---
Impression & Plan COVID-19 virus infection, Hypoxia, Fever ED Provider Note NAME: ARTEM GUPTA AGE: 87 SEX: M : 1935 ARRIVES VIA: Ambulance INFORMANT: Patient, ED PROVIDER(S): Roni Hutchinson DO CHIEF COMPLAINT: Difficulty breathing HPI: The patient is an 87-year-old male who presented to the emergency department by ambulance for an evaluation of difficulty breathing. The patient states he started having difficulty breathing yesterday. The patient states he has a cough as well as shortness of breath with exertion. The patient has a nonproductive cough. He states he has no leg swelling. He denies having any chest pain. The patient was evaluated by the nursing staff at his [facility]. The patient was sent to the emergency department for further evaluation. He denies having any back pain. He states symptoms are worsened with exertion. ROS: See above HPI for pertinent positives & negatives. A total of 10 systems reviewed and were otherwise negative. PAST MEDICAL HISTORY: See Below PAST SURGICAL HISTORY: See Below FAMILY HISTORY: See Below SOCIAL HISTORY: See Below HOME MEDICATIONS: See Below ALLERGIES: See Below VITALS: See Below PHYSICAL EXAMINATION: GENERAL: Patient is awake alert in no acute distress patient is resting comfortably and showing no signs of anxiety EYES: The conjunctivae are clear. The pupils are round and reactive. EARS, NOSE, MOUTH AND THROAT: The nose is without any evidence of any deformity. Mucous membranes are moist. Tongue is midline. NECK: The neck is nontender and supple. RESPIRATORY: Diminished breath sounds are noted throughout. There is faint expi ratory wheezing. There is mild tachypnea as well as conversational dyspnea. CARDIOVASCULAR: Regular rate and rhythm noted there no murmurs rubs or gallops normal S1 normal S2. GASTROINTESTINAL: The abdomen is soft. Abdomen is nontender. MUSCULOSKELETAL/EXTREMITIES: There is no evidence of gross deformity full range of motion is noted in the hips and shoulders. SKIN: Skin was warm and dry. Trace pedal edema was noted bilaterally. There is no calf tenderness. NEUROLOGIC: Patient is awake alert and oriented x3. MEDICAL DECISION MAKING: The patient is an 87-year-old male who presented to the emergency department for an evaluation of difficulty breathing. The patient was found to have a positive COVID swab as an outpatient. He was sent to the emergency department for further evaluation. The patient was tachypneic in the emergency department. He was treated with a [place] dilator as well as IV steroids in the emergency department. He was reevaluated multiple times. Chest x-ray shows no definite infiltrate. The patient was reevaluated and was found to have hypoxia. I discussed the patient's laboratory and radiographic studies with the on-call [facility] hospitalist. They have agreed to evaluate the patient in the emergency department for further management and disposition. Triage Nursing notes reviewed. Prior medical records reviewed Vital Signs: reviewed and remarkable for elevated blood pressure, low-grade fever, hypoxia. Differential diagnosis: Reactive airway disease, pneumonia, pneumothorax, COPD, CHF, infections, cardia c ischemia, pulmonary embolism, musculoskeletal, gastrointestinal, as well as other pathologies. ER treatment provided: See below Diagnostics interpreted by me: ECG: EKG was obtained in the emergency department. My interpretation is sinus rhythm at 99 bpm. First-degree AV block is noted. PVCs were noted. Nonspecific ST depressions were noted in the lateral leads. This was compared to a tracing from March 27, 2021. The PVCs are new otherwise no significant changes were noted. Cardiac Monitoring: An order was placed for continuous cardiac monitoring. The monitor shows a rate of 102 bpm with sinus tachycardia. Laboratory studies: As stated above and show below. Imaging studies: See below. Radiographic imaging was reviewed by myself Consultation(s): I discussed this case with Dr. Carrera who is on-call for the [facility] hospitalist group. 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 Prostate cancer 8 yrs ago> radioactive seeds Urinary incontinence Surgical History History of cardiac cath 8 yrs ago > [place]> no stents History of cataract surgery bilat History of colonoscopy History of root canal procedure History of tonsillectomy History of tooth extraction History of total knee replacement left Social History Smoking Status: Never smoker Second Hand Exposure: No; Do You Dip or Chew Tobacco: No; Hx Alcohol Use: Yes Alcohol type: wine Hx Substance Use: No Preferred Language: Pakistani Communication Ability: Effective Claims Service Representative Required: No Beliefs That Will Affect Care: None marital status: Current Living Situation: Spouse Current Living Situation Comment: at [facility] Feels Safe at Home: Yes Assistive Devices: Walker Allergies Allergies Allergy/AdvReac Type Severity Reaction Status Date / Time tamsulosin Allergy Unknown Unknown Verified 02/15/23 20:19 Home Meds Home Medications Medication Instructions Recorded Confirmed albuterol sulfate 90 mcg/actuation 2 puffs inhalation Q6H PRN Wheezing 11/17/19 02/15/23 breath activated powder inhaler alendronate 70 mg-cholecalciferol 1 tab PO WK 11/17/19 02/15/23 (vitamin D3) 2,800 unit tablet (Fosamax Plus D) cholecalciferol (vitamin D3) 50 2,000 units PO QAM 11/17/19 02/15/23 mcg (2,000 unit) tablet lisinopril 40 mg tablet 40 mg PO QAM 11/17/19 02/15/23 omeprazole 20 mg capsule,delayed 20 mg PO DAILY PRN Heartburn 11/17/19 02/15/23 release vitamins A,C,D-haqq-bvekqz 4,296 1 cap PO BID 11/17/19 02/15/23 mcg-226 mg-90 mg capsule (PreserVision AREDS) coenzyme Q10 100 mg capsule (Co 100 mg PO QAM 03/20/21 02/15/23 Q-10) famotidine 20 mg tablet (Pepcid) 20 mg PO BID 03/20/21 02/15/23 lutein 20 mg capsule 20 mg PO QAM 03/20/21 02/15/23 melatonin 3 mg tablet 3 mg PO HS 03/20/21 02/15/23 prednisone 1 mg tablet 7 mg PO QAM 03/20/21 02/15/23 rosuvastatin 20 mg tablet 20 mg PO PM 03/20/21 02/15/23 aspirin 81 mg tablet,delayed 81 mg PO DAILY 02/17/22 02/15/23 release (Adult Aspirin Regimen) Previous Rx's Medication Instructions Recorded onabotulinumtoxinA 100 unit 100 unit intravesical ONCE #1 ea 02/09/23 solution for injection Results & Data (ED) Vital Signs Vital Signs - 24 hr 02/15/23 18:55 02/15/23 18:58 02/15/23 18:58 Temperature 37.8 C H Temperature Source Oral Pulse Rate 102 H Respiratory Rate 20 Blood Pressure 181/98 H Blood Pressure Mean 125 Pulse Oximetry 94 95 95 Oxygen Delivery Method Room Air Room Air Room Air Oxygen Flow Rate Sepsis Recent Fever Within 48 Hours No Sepsis New/Unexplained Change in Mental Status No Sepsis Action Taken by Nursing No Action Required Oxygen Flow Rate - Titration Pulse Oximetry Post Tiitration 02/15/23 18:47 02/15/23 20:18 Temperature Temperature Source Pulse Rate 89 Respiratory Rate Blood Pressure Blood Pressure Mean Pulse Oximetry 87 L Oxygen Delivery Method Room Air Oxygen Flow Rate 0 Sepsis Recent Fever Within 48 Hours Sepsis New/Unexplained Change in Mental Status Sepsis Action Taken by Nursing Oxygen Flow Rate - Titration 3 Pulse Oximetry Post Tiitration 92 Home Medications Current Medication List: was personally reviewed by me Laboratory Data Attestation: I reviewed the patient's lab results. 02/15/23 19:00 02/15/23 19:00 Lab Results 02/15/23 02/15/23 02/15/23 Range/Units 19:00 19:00 19:00 WBC 8.16 (4.8-10.8) K/ul RBC 5.12 (4.70-6.10) M/uL Hgb 14.5 (14.0-18.0) g/dl Hct 44.5 (42.0-52.0) % MCV 86.9 (80.0-100.0) fL MCH 28.3 (25.0-34.0) pg MCHC 32.6 (32.0-36.0) g/dL RDW Std Deviation 49.4 H (36.4-46.3) fL RDW Coeff of Quinn 15.7 H (11.5-14.5) % Plt Count 258 (130-400) K/uL MPV 9.6 (9.4-12.4) fL Immature Gran % (Auto) 0.5 % Neut % (Auto) 75.0 % Lymph % (Auto) 8.9 % [place] % (Auto) 14.3 % Eos % (Auto) 0.7 % Baso % (Auto) 0.6 % Neut # (Auto) 6.11 (1.40-6.50) K/uL Lymph # (Auto) 0.73 L (1.2-3.4) K/uL [place] # (Auto) 1.17 H (0.11-0.59) K/uL Eos # (Auto) 0.06 (0-0.50) K/uL Baso # (Auto) 0.05 (0-0.2) K/uL Immature Gran # (Auto) 0.04 (0.01-0.20) K/uL PT 12.0 (9.0-12.0) Seconds INR 1.1 (0.9-1.1) APTT 28.8 (21.0-31.0) Seconds PTT Ratio 1.0 VBG pH (7.36-7.41) VBG pCO2 (38-50) mmHg VBG pO2 mmHg VBG HCO3 mmol/L VBG O2 Saturation % VBG Base Excess mEq/L Sodium 138 (136-145) mmol/L Potassium 4.2 (3.5-5.1) mmol/L Chloride 103 (98-107) mmol/L Carbon Dioxide 25 (21-32) mmol/L Anion Gap 10 (3-11) BUN 13 (6-23) mg/dl Creatinine 0.87 (0.6-1.4) mg/dl Est Cr Clr Drug Dosing 59.8 ml/min Est GFR ( Amer) 89.9 ml/min Est GFR (Non-Af Amer) 77.6 ml/min BUN/Creatinine Ratio 14.9 (10-20) Glucose 102 H (70-99(Fasting)) mg/dl Calcium 9.1 (8.6-10.3) mg/dl Magnesium 1.8 (1.7-2.4) mg/dl Total Bilirubin 0.5 (0.2-1.0) mg/dl AST 30 (13-39) U/L ALT 18 (7-52) U/L Alkaline Phosphatase 69 (34-104) U/L Troponin I High Sens 13.4 (0-20) pg/ml B-Natriuretic Peptide (0-100) pg/ml Total Protein 6.9 (6.0-8.3) gm/dl Albumin 4.1 (3.4-5.0) gm/dl Globulin 2.8 (2.5-4.0) gm/dl Albumin/Globulin Ratio 1.5 (0.9-2) Adenovirus (PCR) (NotDetected) B. pertussis DNA (PCR) (NotDetected) B.parapertussis DNA PCR (NotDetected) C. pneumoniae DNA (PCR) (NotDetected) Coronavirus OC43 (PCR) (NotDetected) Coronavirus HKU1 (PCR) (NotDetected) Coronavirus 229E (PCR) (NotDetected) SARS-CoV-2 (PCR) (NotDetected) Coronavirus NL63 (PCR) (NotDetected) Human Metapneumovir PCR (NotDetected) Influenza Type A (PCR) (NotDetected) Influenza Type B (PCR) (NotDetected) M. pneumoniae (PCR) (NotDetected) Parainfluenza 1 (PCR) (NotDetected) Parainfluenza 2 (PCR) (NotDetected) Parainfluenza 3 (PCR) (NotDetected) Parainfluenza 4 (PCR) (NotDetected) RSV (PCR) (NotDetected) Entero/Rhino (PCR) (NotDetected) 02/15/23 02/15/23 02/15/23 Range/Units 19:00 19:26 19:32 WBC (4.8-10.8) K/ul RBC (4.70-6.10) M/uL Hgb (14.0-18.0) g/dl Hct (42.0-52.0) % MCV (80.0-100.0) fL MCH (25.0-34.0) pg MCHC (32.0-36.0) g/dL RDW Std Deviation (36.4-46.3) fL RDW Coeff of Quinn (11.5-14.5) % Plt Count (130-400) K/uL MPV (9.4-12.4) fL Immature Gran % (Auto) % Neut % (Auto) % Lymph % (Auto) % [place] % (Auto) % Eos % (Auto) % Baso % (Auto) % Neut # (Auto) (1.40-6.50) K/uL Lymph # (Auto) (1.2-3.4) K/uL [place] # (Auto) (0.11-0.59) K/uL Eos # (Auto) (0-0.50) K/uL Baso # (Auto) (0-0.2) K/uL Immature Gran # (Auto) (0.01-0.20) K/uL PT (9.0-12.0) Seconds INR (0.9-1.1) APTT (21.0-31.0) Seconds PTT Ratio VBG pH 7.37 (7.36-7.41) VBG pCO2 50 (38-50) mmHg VBG pO2 31 mmHg VBG HCO3 29 mmol/L VBG O2 Saturation < 60.0 % VBG Base Excess 2.7 mEq/L Sodium (136-145) mmol/L Potassium (3.5-5.1) mmol/L Chloride (98-107) mmol/L Carbon Dioxide (21-32) mmol/L Anion Gap (3-11) BUN (6-23) mg/dl Creatinine (0.6-1.4) mg/dl Est Cr Clr Drug Dosing ml/min Est GFR ( Amer) ml/min Est GFR (Non-Af Amer) ml/min BUN/Creatinine Ratio (10-20) Glucose (70-99(Fasting)) mg/dl Calcium (8.6-10.3) mg/dl Magnesium (1.7-2.4) mg/dl Total Bilirubin (0.2-1.0) mg/dl AST (13-39) U/L ALT (7-52) U/L Alkaline Phosphatase (34-104) U/L Troponin I High Sens (0-20) pg/ml B-Natriuretic Peptide 53 (0-100) pg/ml Total Protein (6.0-8.3) gm/dl Albumin (3.4-5.0) gm/dl Globulin (2.5-4.0) gm/dl Albumin/Globulin Ratio (0.9-2) Adenovirus (PCR) Not Detected (NotDetected) B. pertussis DNA (PCR) Not Detected (NotDetected) B.parapertussis DNA PCR Not Detected (NotDetected) C. pneumoniae DNA (PCR) Not Detected (NotDetected) Coronavirus OC43 (PCR) Not Detected (NotDetected) Coronavirus HKU1 (PCR) Not Detected (NotDetected) Coronavirus 229E (PCR) Not Detected (NotDetected) SARS-CoV-2 (PCR) DETECTED A* (NotDetected) Coronavirus NL63 (PCR) Not Detected (NotDetected) Human Metapneumovir PCR Not Detected (NotDetected) Influenza Type A (PCR) Not Detected (NotDetected) Influenza Type B (PCR) Not Detected (NotDetected) M. pneumoniae (PCR) Not Detected (NotDetected) Parainfluenza 1 (PCR) Not Detected (NotDetected) Parainfluenza 2 (PCR) Not Detected (NotDetected) Parainfluenza 3 (PCR) Not Detected (NotDetected) Parainfluenza 4 (PCR) Not Detected (NotDetected) RSV (PCR) Not Detected (NotDetected) Entero/Rhino (PCR) Not Detected (NotDetected) Administered Medications Discontinued Medications Albuterol (Albuterol Hfa 8 Gm Inhaler) 2 puffs INH NOW ONE Stop: 02/15/23 18:47 Last Admin: 02/15/23 19:35 Dose: 2 puffs Documented By: YECENIA Dexamethasone Sodium Phosphate (DexamethasonePf 10 Mg/Ml Vial) 10 mg IV NOW ONE Stop: 02/15/23 18:47 Last Admin: 02/15/23 19:35 Dose: 10 mg Documented By: YECENIA Imaging Data Attestation: I personally reviewed and interpreted this imaging study as follows: My Impression: 1 view chest x-ray was obtained in the emergency department. My interpretation is no definite infiltrate, chronic changes were noted, final report pending. Radiologist's Impression: Chest X-Ray 02/15/23 18:46 XR chest 1V portable CLINICAL HISTORY: Dyspnea. COMPARISON STUDY: Chest radiograph March 27, 2021. FINDINGS: Lung volumes are mildly diminished and the patient is rotated. Lungs are clear. There is no pneumothorax or pleural effusion. Cardiac size is normal. Mediastinal contours are normal. There is no evidence for pulmonary edema. IMPRESSION: No acute cardiopulmonary findings. ACT 112: Negative or not required by law. Electronically signed by: Nikko Armando M.D. 02/15/2023 7:19 PM Discharge Plan Visit Data Chief Complaint: Shortness of Breath/Dyspnea Stated Complaint: COVID +, SOB, WEAK ED Provider: Roni Hutchinson Discharge Problem: COVID-19 virus infection, Hypoxia, Fever Patient Disposition: Being Evaluated by Hospitalist Forms Stand Alone Forms: My [facility] Prescriptions Prescriptions: No Action aspirin [Adult Aspirin Regimen] 81 mg tablet,delayed release (DR/EC) 81 mg PO DAILY onabotulinumtoxinA 100 unit recon soln 100 unit intravesical ONCE Qty: 1 0RF Rx Instructions: inject intravesically once every 3 months albuterol sulfate 90 mcg/actuation aerosol powdr breath activated 2 puffs INH Q6H PRN (Reason: Wheezing) Fosamax Plus D 70 mg- 2,800 unit tablet 1 tab PO WK cholecalciferol (vitamin D3) 2,000 unit tablet 2,000 units PO QAM lisinopril 40 mg tablet 40 mg PO QAM omeprazole 20 mg capsule,delayed release(DR/EC) 20 mg PO DAILY PRN (Reason: Heartburn) PreserVision AREDS [id number] capsule 1 cap PO BID melatonin 3 mg Tablet 3 mg PO HS famotidine [Pepcid] 20 mg Tablet 20 mg PO BID prednisone 1 mg Tablet 7 mg PO QAM coenzyme Q10 [Co Q-10] 100 mg Capsule 100 mg PO QAM rosuvastatin 20 mg Tablet 20 mg PO PM lutein 20 mg Capsule 20 mg PO QAM Referrals Referrals: Isiah Colindres [Primary Care Provider] -
[2023-02-15 19:16] LABS: Basophils # (auto) 0.05 K/uL (0-0.2); Basophils % (auto) 0.6 %; Eosinophils # (auto) 0.06 K/uL (0-0.50); Eosinophils % (auto) 0.7 %; Hematocrit (blood only) 44.5 % (42.0-52.0); Hemoglobin 14.5 g/dl (14.0-18.0); Immature Granulocytes # (auto) 0.04 K/uL (0.01-0.20); Immature Granulocytes % (auto) 0.5 %; Lymphocytes # (auto) 0.73 K/uL (1.2-3.4); Lymphocytes % (auto) 8.9 %; Mean Corpuscular Hemoglobin 28.3 pg (25.0-34.0); Mean Corpuscular Hgb Conc 32.6 g/dL (32.0-36.0); Mean Corpuscular Volume 86.9 fL (80.0-100.0); Mean Platelet Volume 9.6 fL (9.4-12.4); Monocytes # (auto) 1.17 K/uL (0.11-0.59); Monocytes % (auto) 14.3 %; Neutrophils # (auto) 6.11 K/uL (1.40-6.50); Platelet Count 258 K/uL (130-400); RDW Coefficient of Variation 15.7 % (11.5-14.5); RDW Standard Deviation 49.4 fL (36.4-46.3); Red Blood Count 5.12 M/uL (4.70-6.10); White Blood Count 8.16 K/ul (4.8-10.8)
--- NOTE | 2023-02-15 19:20 | XRay Report ---
XR chest 1V portable CLINICAL HISTORY: Dyspnea. COMPARISON STUDY: Chest radiograph March 27, 2021. FINDINGS: Lung volumes are mildly diminished and the patient is rotated. Lungs are clear. There is no pneumothorax or pleural effusion. Cardiac size is normal. Mediastinal contours are normal. There is no evidence for pulmonary edema. IMPRESSION: No acute cardiopulmonary findings. ACT 112: Negative or not required by law. Electronically signed by: Nikko Armando M.D. 02/15/2023 7:19 PM
[2023-02-15 19:32] LABS: Albumin Globulin Ratio 1.5 (0.9-2); Albumin Level 4.1 gm/dl (3.4-5.0); BUN Creatinine Ratio 14.9 (10-20); Bilirubin,Total 0.5 mg/dl (0.2-1.0); Calcium 9.1 mg/dl (8.6-10.3); Creatinine Clr Calc Pharmacy 59.8 ml/min; Est GFR (African American) 89.9 ml/min; Est GFR (Non-African American) 77.6 ml/min; Globulin 2.8 gm/dl (2.5-4.0); Magnesium 1.8 mg/dl (1.7-2.4); Potassium 4.2 mmol/L (3.5-5.1); Total Protein 6.9 gm/dl (6.0-8.3)
[2023-02-15 19:39] LABS: Troponin I High Sensitivity 13.4 pg/ml (0-20)
[2023-02-15 19:40] LABS: Base Excess VBG 2.7 mEq/L; HCO3 VBG 29 mmol/L; Oxygen Saturation VBG < 60.0 %; PCO2 VBG 50 mmHg (38-50); PO2 VBG 31 mmHg; pH VBG 7.37 (7.36-7.41)
[2023-02-15 19:49] LABS: INR 1.1 (0.9-1.1); Partial Thromboplastin Time 28.8 Seconds (21.0-31.0)
[2023-02-15 20:10] LABS: Adenovirus PCR Not Detected (NotDetected); Bordetella parapertussis PCR Not Detected (NotDetected); Bordetella pertussis PCR Not Detected (NotDetected); Chlamydia pneumoniae PCR Not Detected (NotDetected); Coronavirus 229E PCR Not Detected (NotDetected); Coronavirus HKU1 PCR Not Detected (NotDetected); Coronavirus NL63 PCR Not Detected (NotDetected); Coronavirus OC43PCR Not Detected (NotDetected); Human Metapneumovirus PCR Not Detected (NotDetected); Influenza A PCR Not Detected (NotDetected); Influenza B PCR Not Detected (NotDetected); Mycoplasma pneumoniae PCR Not Detected (NotDetected); Parainfluenza Virus 1 PCR Not Detected (NotDetected); Parainfluenza Virus 2 PCR Not Detected (NotDetected); Parainfluenza Virus 3 PCR Not Detected (NotDetected); Parainfluenza Virus 4 PCR Not Detected (NotDetected); Respiratory Syncytial VirusPCR Not Detected (NotDetected); Rhinovirus/Enterovirus PCR Not Detected (NotDetected)
[2023-02-15 20:24] LABS: Coronavirus CoV-2 (COVID19)PCR DETECTED (NotDetected)
[2023-02-15 21:00] LABS: C Reactive Protein 0.86 mg/dl (0-0.5)
--- NOTE | 2023-02-15 21:13 | History & Physical Report ---
Date of Service February 15, 2023 Assessment & Plan (1) COVID-19 virus infection: Plan: 87-year-old male with history of well-controlled asthma, hypertension, hyperlipidemia, GERD and polymyalgia rheumatica on chronic prednisone therapy presenting with COVID-19 infection. Patient has had 2 days of symptomsgeneralized weakness, dry cough and dyspnea. Hypoxic in the ER to 87% on room air which has improved with minimal use of supplemental oxygen. Patient has received 2 vaccinations +2 boosters and has never had COVID in the past. Presently breathing comfortably, no acute distress. Admit to medical Maintain isolation precautions Check ESR, CRP, D-dimer, ferritin and LDH Continue supplemental oxygen as needed Continue dexamethasone 6 mg IV daily Remdesivir therapy per protocol Monitor daily labs, LFTs Tylenol as needed for fever or pain Albuterol as needed for shortness of breath Lovenox 40 mg prophylaxis subcutaneously daily for DVT (2) Asthma: Plan: Well-controlled asthma. Patient reports infrequent use of his rescue inhaler Albuterol HFA as needed (3) GERD (gastroesophageal reflux disease): Plan: Chronic. Stable. Continue Pepcid 20 mg p.o. twice daily (4) Hyperlipidemia: Plan: Chronic. Stable. Continue Crestor 20 mg p.o. every afternoon (5) Hypertension: Plan: Blood pressure elevated presently 181/98. Asymptomatic Continue lisinopril 40 mg p.o. every morning Continue to monitor (6) Polymyalgia rheumatica: Plan: Patient on chronic prednisone therapy 7 mg p.o. daily We will hold oral prednisone while patient is on IV dexamethasone (7mg Pred roughly = 5.6mg Solumedrol) May resume home prednisone on discharge (7) Urge incontinence: Plan: Patient with chronic urge incontinence. He is to receive bladder Botox injection on 02/26/2023. His aspirin has been on hold Continue to hold aspirin 81 mg F/E/NHep-Lock. Electrolytes within normal limits. Regular diet as tolerated. ProphylaxisLovenox 40 mg subcutaneously daily for DVT prophylaxis Codefull per discussion with patient Dispositionadmit to medical History of Present Illness Chief Complaint: cough, SOB Primary Care Provider: Isiah Colindres Braeden Vela is a pleasant 87-year-old male with history of asthma, GERD, hypertension, hyperlipidemia and polymyalgia rheumatica on daily prednisone therapy presenting with COVID-19 infection. Patient reports developing dry cough, shortness of breath and diffuse generalized weakness yesterday. He currently resides at [facility] and there have been several residents that have recently tested positive for COVID-19 - possibly linked to a recent bus trip. Patient was noted to be tachypneic today therefore was sent to the emergency room. He has received 2 vaccines +2 boosters and has never had COVID to his knowledge. In the ER patient with elevated temperature Tmax = 37.8, tachycardic with heart rate = 102, blood pressure elevated at 181/98, saturating 87% on room air. He was placed on supplemental oxygen 2 L and is improved with saturations above 92%. ER course: Albuterol 2 puffs Dexamethasone 10 mg IV Allergies Allergy/AdvReac Type Severity Reaction Status Date / Time tamsulosin Allergy Unknown Unknown Verified 02/15/23 20:19 Home Medications Medication Instructions Recorded Confirmed Type albuterol sulfate 90 mcg/actuation 2 puffs inhalation Q6H PRN Wheezing 11/17/19 02/15/23 History breath activated powder inhaler alendronate 70 mg-cholecalciferol 1 tab PO WK 11/17/19 02/15/23 History (vitamin D3) 2,800 unit tablet (Fosamax Plus D) cholecalciferol (vitamin D3) 50 2,000 units PO QAM 11/17/19 02/15/23 History mcg (2,000 unit) tablet lisinopril 40 mg tablet 40 mg PO QAM 11/17/19 02/15/23 History omeprazole 20 mg capsule,delayed 20 mg PO DAILY PRN Heartburn 11/17/19 02/15/23 History release vitamins A,C,B-tazp-dzgpne 4,296 1 cap PO BID 11/17/19 02/15/23 History mcg-226 mg-90 mg capsule (PreserVision AREDS) coenzyme Q10 100 mg capsule (Co 100 mg PO QAM 03/20/21 02/15/23 History Q-10) famotidine 20 mg tablet (Pepcid) 20 mg PO BID 03/20/21 02/15/23 History lutein 20 mg capsule 20 mg PO QAM 03/20/21 02/15/23 History melatonin 3 mg tablet 3 mg PO HS 03/20/21 02/15/23 History prednisone 1 mg tablet 7 mg PO QAM 03/20/21 02/15/23 History rosuvastatin 20 mg tablet 20 mg PO PM 03/20/21 02/15/23 History aspirin 81 mg tablet,delayed 81 mg PO DAILY 02/17/22 02/15/23 History release (Adult Aspirin Regimen) onabotulinumtoxinA 100 unit 100 unit intravesical ONCE #1 ea 02/09/23 02/15/23 Rx solution for injection Past Med/Surg History Medical History (Updated 02/15/23 @ 21:06 by Leila Carrera DO) Asthma stable Encounter for pre-operative examination GERD (gastroesophageal reflux disease) controlled Hyperlipidemia Hypertension Osteoarthritis Osteoporosis Polymyalgia rheumatica chronically on prednisone 7mg daily Prostate cancer 8 yrs ago> radioactive seeds Urinary incontinence Surgical History History of cardiac cath 8 yrs ago > [place]> no stents History of cataract surgery bilat History of colonoscopy History of root canal procedure History of tonsillectomy History of tooth extraction History of total knee replacement left Social History Smoking Status: Never smoker Second Hand Exposure: No; Do You Dip or Chew Tobacco: No; Hx Alcohol Use: Yes Alcohol type: wine Hx Substance Use: No Preferred Language: Citizen Of [place] Communication Ability: Effective Ham Marker Required: No Beliefs That Will Affect Care: None marital status: Current Living Situation: Spouse Current Living Situation Comment: at [facility] Feels Safe at Home: Yes Assistive Devices: Walker Review of Systems Review of Systems: All systems reviewed & are unremarkable except as noted in HPI & below Physical Exam Physical Exam: General: patient resting comfortably, NAD, non-toxic in appearance, AA&O x 4, hard of hearing Skin: warm, dry, intact, no rashes or lesions HEENT: NC/AT, PERRL, EOMI, anicteric sclera, conjunctiva without injection, external ear normal to inspection and nontender, nares patent, moist mucus membranes, dentition intact, no oropharyngeal lesions, neck supple, trachea midline, no LAD, no thyromegaly, no JVD, nasal cannula in place Heart: +S1/S2, regular, no m/r/g Lungs: equal air entry bilaterally, no rales/rhonchi/wheezes Abd: +BS, soft, NT/ND, no masses/organomegaly/ascites Ext: warm, 2+ pulses in UE/LE bilaterally, no clubbing/cyanosis or edema Neuro: nonfocal, patient AA&O x 4, speech intact, no facial droop, moving all extremities on command with equal strength 5/5 Results & Data Results & Data Vital Signs (Past 12 Hours) Vital Signs Temp Pulse Resp BP Pulse Ox O2 Del Method O2 Flow Rate 02/15/23 20:00 94 H 92 Nasal Cannula 3 02/15/23 20:18 87 L Room Air 0 02/15/23 18:47 89 02/15/23 18:58 95 Room Air 02/15/23 18:58 37.8 C H 102 H 20 181/98 H 95 Room Air 02/15/23 18:55 94 Room Air Laboratory Results Laboratory Results WBC 8.16 K/ul (4.8-10.8) 02/15/23 19:00 RBC 5.12 M/uL (4.70-6.10) 02/15/23 19:00 Hgb 14.5 g/dl (14.0-18.0) 02/15/23 19:00 Hct 44.5 % (42.0-52.0) 02/15/23 19:00 MCV 86.9 fL (80.0-100.0) 02/15/23 19:00 MCH 28.3 pg (25.0-34.0) 02/15/23 19:00 MCHC 32.6 g/dL (32.0-36.0) 02/15/23 19:00 RDW Std Deviation 49.4 fL (36.4-46.3) H 02/15/23 19:00 RDW Coeff of Quinn 15.7 % (11.5-14.5) H 02/15/23 19:00 Plt Count 258 K/uL (130-400) 02/15/23 19:00 MPV 9.6 fL (9.4-12.4) 02/15/23 19:00 Immature Gran % (Auto) 0.5 % 02/15/23 19:00 Neut % (Auto) 75.0 % 02/15/23 19:00 Lymph % (Auto) 8.9 % 02/15/23 19:00 [place] % (Auto) 14.3 % 02/15/23 19:00 Eos % (Auto) 0.7 % 02/15/23 19:00 Baso % (Auto) 0.6 % 02/15/23 19:00 Neut # (Auto) 6.11 K/uL (1.40-6.50) 02/15/23 19:00 Lymph # (Auto) 0.73 K/uL (1.2-3.4) L 02/15/23 19:00 [place] # (Auto) 1.17 K/uL (0.11-0.59) H 02/15/23 19:00 Eos # (Auto) 0.06 K/uL (0-0.50) 02/15/23 19:00 Baso # (Auto) 0.05 K/uL (0-0.2) 02/15/23 19:00 Immature Gran # (Auto) 0.04 K/uL (0.01-0.20) 02/15/23 19:00 PT 12.0 Seconds (9.0-12.0) 02/15/23 19:00 INR 1.1 (0.9-1.1) 02/15/23 19:00 APTT 28.8 Seconds (21.0-31.0) 02/15/23 19:00 PTT Ratio 1.0 02/15/23 19:00 VBG pH 7.37 (7.36-7.41) 02/15/23 19:32 VBG pCO2 50 mmHg (38-50) 02/15/23 19:32 VBG pO2 31 mmHg 02/15/23 19:32 VBG HCO3 29 mmol/L 02/15/23 19:32 VBG O2 Saturation < 60.0 % 02/15/23 19:32 VBG Base Excess 2.7 mEq/L 02/15/23 19:32 Sodium 138 mmol/L (136-145) 02/15/23 19:00 Potassium 4.2 mmol/L (3.5-5.1) 02/15/23 19:00 Chloride 103 mmol/L (98-107) 02/15/23 19:00 Carbon Dioxide 25 mmol/L (21-32) 02/15/23 19:00 Anion Gap 10 (3-11) 02/15/23 19:00 BUN 13 mg/dl (6-23) 05/07/23 19:00 Creatinine 0.87 mg/dl (0.6-1.4) 02/15/23 19:00 Est Cr Clr Drug Dosing 59.8 ml/min 02/15/23 19:00 Est GFR ( Amer) 89.9 ml/min 02/15/23 19:00 Est GFR (Non-Af Amer) 77.6 ml/min 02/15/23 19:00 BUN/Creatinine Ratio 14.9 (10-20) 02/15/23 19:00 Glucose 102 mg/dl (70-99(Fasting)) H 02/15/23 19:00 Calcium 9.1 mg/dl (8.6-10.3) 02/15/23 19:00 Magnesium 1.8 mg/dl (1.7-2.4) 02/15/23 19:00 Total Bilirubin 0.5 mg/dl (0.2-1.0) 02/15/23 19:00 AST 30 U/L (13-39) 02/15/23 19:00 ALT 18 U/L (7-52) 02/15/23 19:00 Alkaline Phosphatase 69 U/L (34-104) 02/15/23 19:00 Troponin I High Sens 13.4 pg/ml (0-20) 02/15/23 19:00 C-Reactive Protein 0.86 mg/dl (0-0.5) H 02/15/23 19:00 B-Natriuretic Peptide 53 pg/ml (0-100) 02/15/23 19:26 Total Protein 6.9 gm/dl (6.0-8.3) 02/15/23 19:00 Albumin 4.1 gm/dl (3.4-5.0) 02/15/23 19:00 Globulin 2.8 gm/dl (2.5-4.0) 02/15/23 19:00 Albumin/Globulin Ratio 1.5 (0.9-2) 02/15/23 19:00 Adenovirus (PCR) Not Detected (NotDetected) 02/15/23 19:00 B. pertussis DNA (PCR) Not Detected (NotDetected) 02/15/23 19:00 B.parapertussis DNA PCR Not Detected (NotDetected) 02/15/23 19:00 C. pneumoniae DNA (PCR) Not Detected (NotDetected) 02/15/23 19:00 Coronavirus OC43 (PCR) Not Detected (NotDetected) 02/15/23 19:00 Coronavirus HKU1 (PCR) Not Detected (NotDetected) 02/15/23 19:00 Coronavirus 229E (PCR) Not Detected (NotDetected) 02/15/23 19:00 SARS-CoV-2 (PCR) DETECTED (NotDetected) A* 02/15/23 19:00 Coronavirus NL63 (PCR) Not Detected (NotDetected) 02/15/23 19:00 Human Metapneumovir PCR Not Detected (NotDetected) 02/15/23 19:00 Influenza Type A (PCR) Not Detected (NotDetected) 02/15/23 19:00 Influenza Type B (PCR) Not Detected (NotDetected) 02/15/23 19:00 M. pneumoniae (PCR) Not Detected (NotDetected) 02/15/23 19:00 Parainfluenza 1 (PCR) Not Detected (NotDetected) 02/15/23 19:00 Parainfluenza 2 (PCR) Not Detected (NotDetected) 02/15/23 19:00 Parainfluenza 3 (PCR) Not Detected (NotDetected) 02/15/23 19:00 Parainfluenza 4 (PCR) Not Detected (NotDetected) 02/15/23 19:00 RSV (PCR) Not Detected (NotDetected) 02/15/23 19:00 Entero/Rhino (PCR) Not Detected (NotDetected) 02/15/23 19:00 Impressions Chest X-Ray 02/15/23 18:46 XR chest 1V portable CLINICAL HISTORY: Dyspnea. COMPARISON STUDY: Chest radiograph March 27, 2021. FINDINGS: Lung volumes are mildly diminished and the patient is rotated. Lungs are clear. There is no pneumothorax or pleural effusion. Cardiac size is normal. Mediastinal contours are normal. There is no evidence for pulmonary edema. IMPRESSION: No acute cardiopulmonary findings. ACT 112: Negative or not required by law. Electronically signed by: Nikko Armando M.D. 02/15/2023 7:19 PM ECG Additional Comments: EKGper my interpretation study reveals sinus rhythm with a rate of 99 bpm, first-degree AV block with NM = 214, several premature atrial contractions, QRS = 90, QTc = 438, nonspecific ST and T wave changes. No acute ischemia Code Status & VTE Plan VTE Prophylaxis Plan VTE Prophylaxis will be ordered: Yes PG Care Time/CCT Total # of Minutes Spent Total Time Spent with Patient: Total time spent is greater than 50% in coordination of care (as documented) at patient's floor/unit and/or counseling patient: Coding Level of Care Code 90801 INT INP/OBS CARE MIN Diagnoses COVID-19 virus infection U07.1 Asthma J45.909 GERD (gastroesophageal reflux disease) K21.9 Hyperlipidemia E78.5 Hypertension I10 Polymyalgia rheumatica M35.3 Urge incontinence N39.41
[2023-02-15] MEDS ORDERED: ONDANSETRON INJ 2 MG/ML 2 ML VIAL IV PRN (23:41)
[2023-02-15] MEDS ORDERED: ALBUTEROL HFA 8 GM INHALER INH PRN (23:41)
[2023-02-15] MEDS ORDERED: REMDESIVIR 200 MG in SODIUM CHLORIDE 0.9% 210 ML IV STA (23:41)
[2023-02-15] MEDS ORDERED: ACETAMINOPHEN 325 MG TAB PO PRN (23:41)
[2023-02-16 00:34] LABS: Ferritin 19.6 ng/ml (8-388)
[2023-02-16] MEDS: FAMOTIDINE 20 MG TAB PO SCH ×3 (01:03→20:14)
[2023-02-16] MEDS: ROSUVASTATIN CALCIUM 20 MG TAB PO SCH ×2 (01:03→20:18)
[2023-02-16] MEDS: MELATONIN 3 MG TAB PO SCH ×2 (01:03→20:14)
[2023-02-16 07:42] LABS: Mean Corpuscular Hemoglobin 28.4 pg (25.0-34.0); Mean Corpuscular Hgb Conc 33.3 g/dL (32.0-36.0); Mean Corpuscular Volume 85.3 fL (80.0-100.0); Mean Platelet Volume 9.8 fL (9.4-12.4); Platelet Count 239 K/uL (130-400); RDW Coefficient of Variation 15.8 % (11.5-14.5); RDW Standard Deviation 49.4 fL (36.4-46.3); Red Blood Count 4.57 M/uL (4.70-6.10); White Blood Count 6.02 K/ul (4.8-10.8)
[2023-02-16 08:00] LABS: Albumin Level 3.7 gm/dl (3.4-5.0); BUN Creatinine Ratio 29.2 (10-20); Bilirubin,Total 0.3 mg/dl (0.2-1.0); Calcium 8.1 mg/dl (8.6-10.3); Creatinine Clr Calc Pharmacy 80.1 ml/min; Est GFR (African American) 101.4 ml/min; Est GFR (Non-African American) 87.5 ml/min; Potassium 4.3 mmol/L (3.5-5.1); Total Protein 6.3 gm/dl (6.0-8.3)
[2023-02-16] MEDS: lisinopril 40 MG TAB PO SCH (08:42)
[2023-02-16] MEDS: dexAMETHasone 6 MG in SYRINGE 0 ML IV SCH (08:43)
[2023-02-16] MEDS: ENOXAPARIN INJ 40 MG/0.4 ML SYR SQ SCH (08:45)
--- NOTE | 2023-02-16 18:44 | Hospitalist Progress Note ---
Date of Service February 16, 2023 Assessment & Plan (1) COVID-19 virus infection: Plan: 87-year-old male with history of well-controlled asthma, hypertension, hyperlipidemia, GERD and polymyalgia rheumatica on chronic prednisone therapy presenting with COVID-19 infection. Patient has had 2 days of symptomsgeneralized weakness, dry cough and dyspnea. Hypoxic in the ER to 87% on room air which has improved with minimal use of supplemental oxygen. Patient has received 2 vaccinations +2 boosters and has never had COVID in the past. Feeling much improved after receiving IV Decadron and 1 dose of Remdesivir. Only requiring 1-2 L nasal cannula to keep pulse ox greater than 89%, energy level and appetite much improved. Weakness greatly improved-ambulating independently in the room. CRP low at 0.8, ESR only mildly elevated at 32, ferritin low at 19 Chest x-ray negative for pneumonia Continued stay medical/surgical unit Maintain isolation precautions Continue supplemental oxygen as needed to keep pulse ox greater than 89% Continue dexamethasone 6 mg IV daily and convert to p.o. to complete a 10-day course after discharge prior to returning to home prednisone dose of 4 mg daily Continue Remdesivir therapy per protocol Monitor daily labs, LFTs Tylenol as needed for fever or pain Albuterol as needed for shortness of breath Lovenox 40 mg prophylaxis subcutaneously daily for DVT (2) Asthma: Plan: Well-controlled asthma. Patient reports infrequent use of his rescue inhaler Albuterol HFA as needed (3) GERD (gastroesophageal reflux disease): Plan: Chronic. Stable. Continue Pepcid 20 mg p.o. twice daily (4) Hyperlipidemia: Plan: Chronic. Stable. Continue Crestor 20 mg p.o. every afternoon (5) Hypertension: Plan: Blood pressure now normal Continue lisinopril 40 mg p.o. every morning Continue to monitor (6) Polymyalgia rheumatica: Plan: Patient on chronic prednisone therapy weaning down and now on 4 mg p.o. daily We will hold oral prednisone while patient is on IV dexamethasone May resume home prednisone after dexamethasone higher dose regimen for 10 days (7) Urge incontinence: Plan: Patient with chronic urge incontinence. He is to receive bladder Botox injection on 02/26/2023. His aspirin has been on hold Continue to hold aspirin 81 mg ProphylaxisLovenox 40 mg subcutaneously daily for DVT prophylaxis Codefull per discussion with patient Dispositioncontinued stay but likely can discharge to home at [facility] on 02/17. May need a two-step walk test prior to discharge Admission and Anticipated Discharge Date Admission Date: February 15, 2023 Subjective Feeling much better. Had a bowel movement today. Was walking around the room without his oxygen on when I came to see him. Feeling much less short of breath, occasional sputum production. Appetite is tremendously improved. Pulse ox remained at 90-91% off oxygen but as I talked to him longer, he dropped down to 88-89% and oxygen was reapplied. Physical Exam Constitutional: WD/WN, vitals as above Respiratory: normal respiratory effort; no cough and not tachypneic Auscultation: no crackles, no rhonchi and no wheezes Cardiovascular: RRR, no murmur, no edema Psychiatric: A+Ox3, euthymic affect Results & Data Results & Data Vital Signs (Past 12 Hours) Vital Signs Temp Pulse Resp BP Pulse Ox O2 Del Method O2 Flow Rate 02/16/23 16:06 36.6 C 63 16 110/68 93 Nasal Cannula 3 02/16/23 09:32 Nasal Cannula 3 02/16/23 08:54 36.5 C 76 16 116/66 93 Nasal Cannula 4 Laboratory Results CBC, BMP, ESR, CRP, ferritin, troponin and VBG all reviewed PG Care Time/CCT Total # of Minutes Spent Total Time Spent with Patient: Total time spent is greater than 50% in coordination of care (as documented) at patient's floor/unit and/or counseling patient: Coding Level of Care Code 48102 SUB INP/OBS CARE 2/35MIN Diagnoses COVID-19 virus infection U07.1 Asthma J45.909 GERD (gastroesophageal reflux disease) K21.9 Hyperlipidemia E78.5 Hypertension I10 Polymyalgia rheumatica M35.3 Urge incontinence N39.41
[2023-02-16] MEDS ORDERED: REMDESIVIR 100 MG in SODIUM CHLORIDE 0.9% 230 ML IV SCH (20:00)
[2023-02-17 07:54] LABS: Albumin Globulin Ratio 1.4 (0.9-2); Albumin Level 3.6 gm/dl (3.4-5.0); BUN Creatinine Ratio 35.6 (10-20); Bilirubin,Total 0.3 mg/dl (0.2-1.0); Calcium 7.9 mg/dl (8.6-10.3); Creatinine Clr Calc Pharmacy 71.3 ml/min; Est GFR (African American) 96.7 ml/min; Est GFR (Non-African American) 83.4 ml/min; Globulin 2.5 gm/dl (2.5-4.0); Potassium 4.3 mmol/L (3.5-5.1); Total Protein 6.1 gm/dl (6.0-8.3)
[2023-02-17 07:55] LABS: Basophils # (auto) 0.01 K/uL (0-0.2); Basophils % (auto) 0.1 %; Hemoglobin 12.9 g/dl (14.0-18.0); Immature Granulocytes # (auto) 0.05 K/uL (0.01-0.20); Immature Granulocytes % (auto) 0.4 %; Lymphocytes # (auto) 1.63 K/uL (1.2-3.4); Lymphocytes % (auto) 14.6 %; Mean Corpuscular Hemoglobin 28.2 pg (25.0-34.0); Mean Corpuscular Hgb Conc 32.3 g/dL (32.0-36.0); Mean Corpuscular Volume 87.3 fL (80.0-100.0); Mean Platelet Volume 10.2 fL (9.4-12.4); Monocytes % (auto) 12.5 %; Neutrophils % (auto) 72.4 %; Platelet Count 243 K/uL (130-400); RDW Coefficient of Variation 15.9 % (11.5-14.5); RDW Standard Deviation 50.7 fL (36.4-46.3); Red Blood Count 4.58 M/uL (4.70-6.10); White Blood Count 11.19 K/ul (4.8-10.8)
[2023-02-17] MEDS: lisinopril 40 MG TAB PO SCH (08:01)
[2023-02-17] MEDS: ENOXAPARIN INJ 40 MG/0.4 ML SYR SQ SCH (08:03)
[2023-02-17] MEDS: FAMOTIDINE 20 MG TAB PO SCH (08:03)
[2023-02-17] MEDS: dexAMETHasone 6 MG in SYRINGE 0 ML IV SCH (09:56)
--- NOTE | 2023-02-17 13:32 | Discharge Summary ---
Date of Service February 17, 2023 Admission HPI Per Admitting Provider Braeden Vela is a pleasant 87-year-old male with history of asthma, GERD, hypertension, hyperlipidemia and polymyalgia rheumatica on daily prednisone therapy presenting with COVID-19 infection. Patient reports developing dry cough, shortness of breath and diffuse generalized weakness yesterday. He currently resides at [facility] and there have been several residents that have recently tested positive for COVID-19 - possibly linked to a recent bus trip. Patient was noted to be tachypneic today therefore was sent to the emergency room. He has received 2 vaccines +2 boosters and has never had COVID to his knowledge. In the ER patient with elevated temperature Tmax = 37.8, tachycardic with heart rate = 102, blood pressure elevated at 181/98, saturating 87% on room air. He was placed on supplemental oxygen 2 L and is improved with saturations above 92%. ER course: Albuterol 2 puffs Dexamethasone 10 mg IV Principal Diagnosis COVID 19 virus Discharge Exam Constitutional: WD/WN, vitals as above Respiratory: normal respiratory effort; no cough and not tachypneic Auscultation: no crackles, no rhonchi and no wheezes Cardiovascular: RRR, no murmur, no edema Psychiatric: A+Ox3, euthymic affect Discharge Data Allergies Allergy/AdvReac Type Severity Reaction Status Date / Time tamsulosin Allergy Unknown Unknown Verified 02/15/23 20:19 Consultations 02/15/23 20:40 ED Decision to Admit Stat Hospital Course (1) COVID-19 virus infection: 87-year-old male with history of well-controlled asthma, hypertension, hyperlipidemia, GERD and polymyalgia rheumatica on chronic prednisone therapy presenting with COVID-19 infection. Patient has had 2 days of symptomsgeneralized weakness, dry cough and dyspnea. Hypoxic in the ER to 87% on room air which has improved with minimal use of supplemental oxygen. Patient has received 2 vaccinations +2 boosters and has never had COVID in the past. Feeling much improved after receiving IV Decadron and 1 dose of Remdesivir. Only requiring 1-2 L nasal cannula to keep pulse ox greater than 89%, energy level and appetite much improved. Weakness greatly improved-ambulating independently in the room. CRP low at 0.8, ESR only mildly elevated at 32, ferritin low at 19 Chest x-ray negative for pneumonia Continued stay medical/surgical unit Maintain isolation precautions Patient improved and passed his 2 steo. Complete dexamethasone 6 mg 10-day course after discharge prior to returning to home prednisone dose of 4 mg daily Continue Remdesivir therapy while inhouse. will stop as being discharged. (2) Asthma: Well-controlled asthma. Patient reports infrequent use of his rescue inhaler Albuterol HFA as needed (3) GERD (gastroesophageal reflux disease): Chronic. Stable. Continue Pepcid 20 mg p.o. twice daily (4) Hyperlipidemia: Chronic. Stable. Continue Crestor 20 mg p.o. every afternoon (5) Hypertension: Blood pressure now normal Continue lisinopril 40 mg p.o. every morning Continue to monitor (6) Polymyalgia rheumatica: Patient on chronic prednisone therapy weaning down and now on 4 mg p.o. daily May resume home prednisone after dexamethasone higher dose regimen for 10 days (7) Urge incontinence: Patient with chronic urge incontinence. He is to receive bladder Botox injection on 02/26/2023. His aspirin has been on hold Continue to hold aspirin 81 mg ProphylaxisLovenox 40 mg subcutaneously daily for DVT prophylaxis Codefull per discussion with patient Total Time Total Time Spent Total Time Spent (In Minutes): 32 Discharge Plan Discharge Items Patient Disposition: Home - Self-Care Reason For Visit: COVID-19 INFECTION, HYPOXIA Discharge Diagnosis: COVID 19 Activity: Resume your previous activity Non-emergency contact: Primary Care Provider Call non-emergency contact if: you have any medication questions Follow-up/Referrals: Isiah Colindres [Primary Care Provider] - Diet: Regular Addtl Attending Provider Instructions: Please continue to quarantine for until PM After Thursday, you can leave the house and run errands, however, we recommend you wear a mask when in public for 5 more days. Last day to mask would be Thursday evening. Do not go out and eat at restaurants until 02/24. Please resume prednisone once you have finised your dexamethasone. Pending Studies at Discharge: No Stand-Alone Forms: [employer], Smoking Cessation Medications and DC Order Prescriptions: New dexamethasone 6 mg tablet 6 mg PO DAILY Qty: 7 0RF Continued aspirin [Adult Aspirin Regimen] 81 mg tablet,delayed release (DR/EC) 81 mg PO DAILY onabotulinumtoxinA 100 unit recon soln 100 unit intravesical ONCE Qty: 1 0RF Rx Instructions: inject intravesically once every 3 months albuterol sulfate 90 mcg/actuation aerosol powdr breath activated 2 puffs INH Q6H PRN (Reason: Wheezing) Fosamax Plus D 70 mg- 2,800 unit tablet 1 tab PO WK cholecalciferol (vitamin D3) 2,000 unit tablet 2,000 units PO QAM lisinopril 40 mg tablet 40 mg PO QAM omeprazole 20 mg capsule,delayed release(DR/EC) 20 mg PO DAILY PRN (Reason: Heartburn) PreserVision AREDS [id number] capsule 1 cap PO BID melatonin 3 mg Tablet 3 mg PO HS famotidine [Pepcid] 20 mg Tablet 20 mg PO BID coenzyme Q10 [Co Q-10] 100 mg Capsule 100 mg PO QAM rosuvastatin 20 mg Tablet 20 mg PO PM lutein 20 mg Capsule 20 mg PO QAM Held prednisone 1 mg Tablet 4 mg PO QAM Hold Instructions: Resume on 02/24/23. Resume once dexamethasome has been completed Discharge Orders: Discharge Order (Routine); Ordered 02/17/23 Ordered By: Charles Ellis Admission Data Admit Date/Time: 02/15/23 20:44 Attending Provider: Charles Ellis Admit Provider: Leila Carrera Primary Care Provider: Isiah Colindres Other Providers: Leila Carrera Other Interventions: Discharge Summary Assessment (RN) Last Done: 02/17/23 13:55 Coding Level of Care Code 30179 INP/OBS DISCH >30 MIN Diagnoses COVID-19 virus infection U07.1 Asthma J45.909 GERD (gastroesophageal reflux disease) K21.9 Hyperlipidemia E78.5 Hypertension I10 Polymyalgia rheumatica M35.3 Urge incontinence N39.41
--- NOTE | 2023-02-17 22:10 | Electrocardiogram Report ---
Test Reason : Blood Pressure : / mmHG Vent. Rate : 099 BPM Atrial Rate : 099 BPM P-R Int : 214 ms QRS Dur : 090 ms QT Int : 342 ms P-R-T Axes : 014 -28 085 degrees QTc Int : 438 ms Sinus rhythm with 1st degree A-V block with Premature atrial complexes with Aberrant conduction Nonspecific ST and T wave abnormality Abnormal ECG When compared with ECG of 27-MAR-2021 08:45, Aberrant conduction is now Present Vent. rate has increased BY 42 BPM Inverted T waves have replaced nonspecific T wave abnormality in Lateral leads Confirmed by Tr Jansen ([id number]) on 02/17/2023 10:10:08 PM Referred By: REFERRED SELF Confirmed By:Tr Jansen
== END 2023-02-17 15:47 | disposition home or self-care (01) | DRG 179 ==
LOC: ED 18:35 → SUATTDRO 20:44 → 3W 20:44